=== PATIENT | female | born 1960 | race Caucasian/White ===

== ENCOUNTER → 2017-08-12 | Outpatient (CLI) | payer MEDICAID | LOC: CIMAGING 11:13 | PROVIDERS: ATTEND Internal Medicine | DX: M25.551 Pain in right hip (principal); M25.552 Pain in left hip; Z86.000 Personal history of in-situ neoplasm of breast | CPT/HCPCS: 73521-PO ==

== ENCOUNTER 2018-02-19 08:34 | Emergency (ER) | payer MEDICAID ==
--- NOTE | 2018-02-19 08:36 | EDPHY ---
HPI/HX/ROS/PE/MDM Narrative: CHIEF COMPLAINT: Headache and cough HPI: The patient is a 57 y/o female with a history of mastectomy and thyroidectomy complaining of a headache and cough, onset 13 days ago. She denies having pain or sputum with her cough. When her symptoms first started she felt lethargic and weak. She saw her PCP, who said there were no signs of pneumonia. The symptoms continued to worsen for a week and she was unable to work. Two days ago , she called her PCP, who prescribed her cough syrup with codeine. This cough syrup made the patient unable to sleep and subsequently worsened her headache. Due to the headache she has had difficulty concentrating. She has also had sinus pressure and an intermittent subjective fever as she has felt hot and clammy. She took Aleve and Theraflu with minimal relief of symptoms. She presents to the emergency department today and is requesting a short course of steroids as she states this has helped improve cold symptoms in the past. Denies neck pain, chest pain, shortness of breath, abdominal pain, urinary or bowel complaints, numbness, paresthesias. REVIEW OF SYSTEMS: Aside from elements discussed in the HPI, a comprehensive 10 system review of systems is otherwise negative. PMH: Mastectomy (2012), thyroidectomy (November 2017) SOCIAL HISTORY: Lives in [place], employed, PHYSICAL EXAM: General: Patient is alert, in no acute distress. ENT: Eyes are normal to inspection. ENT inspection normal. Neck: Normal inspection. Full range of motion. Respiratory: No respiratory distress. Breath sounds normal bilaterally. Cardiovascular: Regular rate and rhythm. Strong peripheral pulses. Normal cap refill. Back: Normal to inspection. No tenderness to palpation. Skin: Normal color. No rash. Warm and dry. Extremities: Normal appearance. Full range of motion. Neuro: Oriented x3. Normal motor function. Normal sensory function. ED Course: 0850: Reassessed patient, imaging and laboratory studies are not indicated at this time. I have prescribed her Prednisone as she is requesting a short course of steroids for her cold-like symptoms. I suspect she had a viral infection, but her symptoms have started improving. Return precautions provided; patient is comfortable with this plan. MDM: This patient presents to the ED essentially to obtain an rx for prednisone burst , which has worked well for her in the past. We discussed options for workup and treatment, including labs, CTH, CXR, but patient declines these tests as well as declines antibiotics. She will follow-up with her PCP if symptoms persist. General Time Seen by Provider: 02/19/18 08:36 Initial Vital Signs: Initial Vital Signs Temperature (C) 36.5 C 02/19/18 08:38 Heart Rate 57 L 02/19/18 08:38 Respiratory Rate 17 02/19/18 08:38 Blood Pressure 100/65 02/19/18 08:38 O2 Sat (%) 97 02/19/18 08:38 O2 Delivery Mode Room Air Allergies/Adverse Reactions: progesterone Allergy (Verified 02/19/18 08:36) Home Medications: Medication Instructions Recorded Ambien 02/19/18 Synthroid 02/19/18 predniSONE 60 mg PO DAILY 5 Days tab 02/19/18 Departure - Departure Disposition: Home, Routine, Self-Care Clinical Impression: Viral syndrome, Cough Headache Qualifiers: Headache type: unspecified Headache chronicity pattern: acute headache Intractability: intractable Qualified Code(s): R51 - Headache Condition: Good Instructions: Viral Syndrome (ED), Cold Symptoms (ED) Additional Instructions: Take Prednisone as prescribed. Follow-up with your primary doctor within 72 hours. Return to the Emergency Department for fever, chest pain, shortness of breath, increasing pain or other worsening of condition. Referrals: Casey Choi MD [Primary Care Provider] - As per Instructions Prescriptions: predniSONE 60 mg PO DAILY 5 Days tab Report Scribed for: Kade Bennett Report Scribed by: Azeb Olivier Date of Report: 02/19/18 Time of Report: 08:35 Physician Review and Approval Statement: Portions of this note were transcribed by an ED scribe. I personally performed the history, physical exam, and medical decision making; and confirm the accuracy of the information in the transcribed note.
[2018-02-19 08:41] VITALS: BP 100/65
== END 2018-02-19 09:04 | disposition home or self-care (01) ==
DX: R51 Headache (principal); R05 Cough; B34.9 Viral infection, unspecified